=== PATIENT | female | born 1970 | race African-American/Black ===

== ENCOUNTER → 2019-01-19 | Outpatient (CLI) | payer MEDICAID ==
--- NOTE | 2019-01-19 14:13 | KCIC ---
MR of the right shoulder HISTORY: Right shoulder pain. Previous surgery 2018. TECHNIQUE: Routine multiplanar sequences are obtained. FINDINGS: Drhi-rc-[id number] motion degradation. Acromioclavicular joint is mildly degenerative. There are postsurgical changes compatible with rotator cuff repair, with anchor screws at the humeral head and greater tuberosity. Mild heterogeneity of the rotator cuff but no evidence of significant recurrent rupture or retraction. No significant subdeltoid bursal effusion. No significant glenohumeral joint effusion. Mild signal within the posterior labrum, but no definite surface tear. Biceps tendon is intact. No bone destruction or acute fracture. No acute soft tissue abnormality. IMPRESSION: 1. Postsurgical changes of rotator cuff without evidence of significant recurrent tear. 2. Mild signal within the posterior labrum likely degenerative. No evidence of labral separation. Electronically signed by: Javon Ron MD (01/19/2019 2:10 PM) [id number]
== END | disposition home or self-care (01) ==
LOC: KCIC MRI 11:36
PROVIDERS: ATTEND Orthopaedic Surgery
DX: M25.511 Pain in right shoulder (principal); Z98.890 Other specified postprocedural states; Z90.710 Acquired absence of both cervix and uterus
CPT/HCPCS: 73221